=== PATIENT | male | born 1955 ===

== ENCOUNTER 2025-03-28 23:25 | Emergency (ER) | payer MEDICARE, BC, SELFPAY ==
[2025-03-28 23:29] VITALS: BP 135/84
[2025-03-29] MEDS: NORCO 5/325 2 TABLET PO (01:14)
[2025-03-29] MEDS: CEFTIN 500 MG PO (01:30)
--- NOTE | 2025-03-29 01:55 | ED.GENMED ---
History of Present Illness
General
Chief Complaint: Post Operative Problem(s)
Time Seen by Provider: 03/28/25 23:53
History of Present Illness
History of Present Illness:
Note:
CHIEF COMPLAINT(S)
Uncontrolled nasal bleeding following sinus surgery.
HISTORY OF PRESENT ILLNESS
The patient is a 69-year-old male who underwent an endoscopic sinus procedure earlier today. He reports that initially there was some bleeding, which seemed to stop after applying pressure. However, the bleeding restarted with increased severity
when the patient got up for dinner. The bleeding was profuse and uncontrollable, prompting emergency medical services. Upon arrival at the hospital, ice packs and compression helped to stop the bleeding. During an examination, a large clot was noted
in the right nasal cavity, which was causing blood to run into the patients mouth when lying down. The bleeding predominantly occurred from the right nostril after worsening post-procedure.
PAST MEDICAL AND SURGICAL HISTORY
The patient recalls being packed for similar issues after previous nasal surgery. He reports no significant bleeding disorders and uses baby aspirin once daily and Aleve twice daily for back pain.
SOCIAL DETERMINANTS AFFECTING HEALTH
The patient mentioned financial impediments and a common sense of pressure rather than physical bleeding, suggesting psychosocial stressors could contribute to his perception of bleeding.
REVIEW OF SYSTEMS
- Nasal: Profuse bleeding from the right nostril post-surgery, with large clots noted.
- Oral: Blood noted post-surgery in the oral cavity, leading to discomfort and a sense of fullness.
PHYSICAL EXAM
General: Alert, no acute distress.
Skin: Warm, dry.
Head: Normocephalic, atraumatic.
Neck: Supple, trachea midline.
Eye Ears, nose, mouth, and throat: Oral mucosa moist. Examination reveals large clots in the right nasal cavity.
Cardiovascular: Normal peripheral perfusion, No edema.
Respiratory: Respirations are non-labored.
Gastrointestinal: Abdomen nondistended
Back: Normal range of motion, Normal alignment.
Musculoskeletal: Normal range of motion, normal strength.
Neurological: Alert and oriented to person, place, time, and situation, No focal neurological deficit observed.
Psychiatric: Cooperative, appropriate mood & affect.
PROBLEM LIST
- Acute: Profuse nasal bleeding post sinus surgery with clot formation.
- Chronic: Pain managed with NSAIDs.
PLAN
- Temporarily pack the nasal cavity with TXA-drenched packing to stop the source of bleeding and encourage clot formation due to a lack of nasal access.
- Prescribe antibiotics as prophylaxis against infection secondary to nasal packing.
- Continue current pharmacotherapy for inflammation but ensure adequate bleeding control measures are taken.
- Follow-up scheduled with the surgical team to assess packing removal and additional care.
DIFFERENTIAL DIAGNOSIS
The Differential Diagnosis includes, in no particular order and is not limited to:
1. Post-operative hemorrhage.
2. Nasal septal hematoma.
3. Surgical site infection.
4. Nasal foreign body (packing-related).
5. Coagulopathy.
6. Hypertension-induced bleeding.
7. Sinus infection.
8. Aneurysm within nasal vasculature.
9. Uncontrolled epistaxis.
10. Adverse reaction to anticoagulant therapy (Aspirin use).
CARE-UPDATE
03/29/25 - 01:54
Reassessment noted no further bleeding; only minor oozing observed from the right nostril, primarily clear with a blood tinge. No purulent discharge or evidence of pharyngeal bleeding.
Disposition:
SUMMARY OF ENCOUNTER
The patient, a 69-year-old male, presented to the emergency department due to uncontrolled nasal bleeding after undergoing endoscopic sinus surgery earlier in the day. The bleeding initially improved with pressure but exacerbated after rising for
dinner, leading to substantial epistaxis that required emergency medical services. Upon assessment, large clots were discovered in the right nasal passage and peripharynx, causing significant bleeding. After discussion with an ENT specialist, it was
decided to pack the nasal cavity with 7.5 cm packing soaked in tranexamic acid (TXA) to stop the bleeding. The intervention was successful, and upon reassessment, the bleeding had ceased.
DISPOSITION
Discharge
ASSESSMENT
The patient exhibited profuse post-operative nasal bleeding, managed with TXA-drenched packing leading to resolution of active bleeding.
EMERGENCY TREATMENTS ADMINISTERED
Tranexamic acid (TXA) 7.5 cm packing was applied to the right nasal cavity.
MANAGEMENT OF THE PATIENTS CARE WAS DISCUSSED WITH
An ENT specialist
REASSESSMENT
On reassessment, no further bleeding was noted, indicating effective intervention.
PLAN
Temporarily pack the nasal cavity with TXA-drenched material, initiate cefuroxime (Ceftin) due to previous tolerance of cephalosporins, and coordinate follow-up care with the ENT specialist scheduled for the following day.
PATIENT EDUCATION AND COUNSELING
The patient was informed about the nature of the bleeding, the treatment administered, and the importance of follow-up care with their ENT specialist.
FOLLOW-UP INSTRUCTIONS
Follow-up with an ENT specialist is arranged for tomorrow to assess the current situation and the removal of nasal packing.
MEDICATION RECONCILIATION
The patient was started on cefuroxime (Ceftin), a cephalosporin, after confirmation of previous tolerance to similar medications.
MEDICAL DECISION MAKING
- Number and Complexity of Problems Addressed: Chronic conditions affecting care: Other relevant conditions include pain managed with NSAIDs. Differential Diagnosis:
1. Post-operative hemorrhage.
2. Nasal septal hematoma.
3. Surgical site infection.
4. Nasal foreign body (packing-related).
5. Coagulopathy.
6. Hypertension-induced bleeding.
7. Sinus infection.
8. Aneurysm within nasal vasculature.
9. Uncontrolled epistaxis.
10. Adverse reaction to anticoagulant therapy (Aspirin use).
- Data:
Category 2: Management was discussed with an ENT specialist, who agreed with the plan to employ TXA-drenched packing.
- Risk: The need for outpatient follow-up was recognized after ensuring successful resolution of acute symptoms. Social determinants of health include financial impediments and psychosocial stressors affecting patient perception.
DIAGNOSIS
- Uncontrolled epistaxis post procedural (ICD-10: R04.0)
- Postoperative hemorrhage of a nasal sinus (ICD-10: J95.830)
Phy Exam
Physical Exam
Physical Exam:
.
Course
Orders/Labs/Results
Orders:
Orders
03/29/25 00:40
Oxymetazoline HCl [Afrin Nasal [place]] 30 sprays .ROUTE .STK-MED ONE
03/29/25 00:48
Tranexamic Acid 1,000 mg .ROUTE .STK-MED ONE
03/29/25 00:56
Hydrocodone 5/APAP 325 [[place] 5/325] 2 tablet PO NOW STA
03/29/25 01:12
Cefuroxime Axetil [Ceftin] 500 mg PO NOW STA
Vital Signs
Initial and Last Documented VS:
Initial Vital Signs
Pulse Resp BP Pulse Ox
90 24 135/84 98
03/28/25 23:29 03/28/25 23:29 03/28/25 23:29 03/28/25 23:29
Last Documented Vital Signs
Pulse Resp BP Pulse Ox
90 24 135/84 98
03/28/25 23:29 03/28/25 23:29 03/28/25 23:29 03/29/25 01:56
Procedures
Nosebleed
Drug treatment: Neosynephrine
Treatment: Epistat nasal catheter
Post treatment bleeding: none- good control
*Pulse Oximetry
SaO2: 98
Oxygen Mode of Delivery: Room air
Patient hypoxic: no
*Critical Care Note
Total Time (30-74mins, 75-104mins- exclusive of procedures): Not Applicable
ED Attending Note
-
Portions of this chart may have been created with voice recognition software.� Occasional wrong word or��sound alike� substitutions may have occurred due to the inherent limitations of voice recognition software.
Discharge Plan
Departure
Patient Disposition: Home (Routine Discharge)
Date of Disposition: 03/29/25
Time of Disposition: 01:55
Patient with high blood pressure during this ER visit?: No
Discharge Problem:
Epistaxis, Post-operative hemorrhage
Instructions: Nosebleeds, Bleeding After Surgery
Prescriptions:
New
cefuroxime axetil 500 mg tablet
500 mg PO BID 7 Days Qty: 14 0RF
Referrals:
Robert Damina DO [Family Provider, Family Practice]
Activity Restrictions/Additional Instructions:
Please see ENT in the next 2 to 3 days for follow-up and reevaluation. Return immediately for worsening bleeding, fevers, worsening pain or any other concerns. Packing can be removed by ENT.
Interventions
Interventions:
*Risk Screen - Suicide Last Done: 03/28/25 23:29
*General Assessment Last Done: 03/29/25 00:02
*Neglect/Abuse Screening Last Done: 03/28/25 23:29
*ED- Fall Risk Assessment Last Done: 03/29/25 00:02
*ED COVID-19 Vaccine History Last Done: 03/29/25 00:02
Discharge Date and Time
Print Language: PASHTO
[2025-03-29 02:23] VITALS: BP 131/80
== END 2025-03-29 02:25 | disposition home or self-care (01) ==
LOC: EMR 23:25
PROVIDERS: EMERGENCY PHYSICIAN Emergency Medicine; FAMILY PHYSICIAN Family Medicine
DX: R04.0 Epistaxis (principal)
CPT/HCPCS: 99283; 88304